=== PATIENT | male | born 1995 | race Two or more races ===

== ENCOUNTER 2023-03-28 01:27 | Emergency (ER) | payer OTHER ==
[~2023-03-28] VITALS: Ht 188 cm; Wt 111.1 kg
[2023-03-28 02:00] VITALS: BP 130/68
--- NOTE | 2023-03-28 02:00 | NUR ---
BROUGHT BY JULIANE FOR COVID SWAB. PT IS FOR BOOKING AT ASSISTED. PT IS AOX4. ABLE TO MAKE NEEDS KNOWN. COVID SWAB DONE ORDERED BY DR SANTORO
--- NOTE | 2023-03-28 02:56 | NUR ---
PT OK TO DISCHARGE PER DR SANTORO. Patient discharged in custody of [employer] in stable condition. Written and verbal after care instructions given. Patient verbalizes understanding of instruction.Patient is awake and alert to self, day, and place. PT ambulatory with a steady gait
== END 2023-03-28 03:00 | disposition home or self-care (01) ==
LOC: ER 01:30
DX: Z11.52 Encounter for screening for COVID-19 (principal); Z20.822 Contact with and (suspected) exposure to COVID-19; Z59.00 Homelessness unspecified
CPT/HCPCS: 99283; 87426; C9803